=== PATIENT | female | born 1970 | race African-American/Black ===

== ENCOUNTER 2016-11-22 20:36 | Emergency (ER) | payer OTHER ==
[~2016-11-22] VITALS: Ht 162.6 cm; Wt 63.5 kg
[~2016-11-22 20:36] MED LIST: CARAFATE 1 GM TA1 G1 PO; PEPCID20 MG PO
[2016-11-22] MEDS ORDERED: BENTYL 10 MG CA10 M1 PO (20:43)
[2016-11-22] MEDS ORDERED: NEXIUM40 MG PO (21:16)
[2016-11-22 21:44] LABS: HEMOGLOBIN 18.2 gm/dL (12.0-15.0); MCH 31.3 pg (26.0-34.0); MCHC 35.7 g/dL (28.0-37.0); MCV 87.7 fL (80.0-100.0); PLATELET COUNT 402 thou/uL (150-400); RBC 5.81 mil/uL (4.20-5.00); RDW 12.8 % (10.5-14.5); WBC 13.1 thou/uL (4.0-11.0)
[2016-11-22 21:48] LABS: CALCIUM 10.5 mg/dL (8.5-10.1); CREATININE 1.7 mg/dL (0.6-1.0); MANUAL DIFF YES; POTASSIUM 4.2 mmol/L (3.5-5.1)
[2016-11-22 21:52] LABS: ALBUMIN 4.6 g/dL (3.4-5.0); TOTAL BILIRUBIN 0.6 mg/dL (<0.1-1.0); TOTAL PROTEIN 9.1 g/dL (6.4-8.2)
[2016-11-22 22:07] LABS: ABSOLUTE NEUTROPHILS 9.7 thou/uL (1.4-8.2); ATYPICAL LYMPHS 3 %; TOTAL CELL COUNT 100
[2016-11-22 22:08] LABS: LARGE PLATELETS OCCASIONAL
[2016-11-23] MEDS ORDERED: ONDANSETRON HCL4 M2 PO (00:01)
[2016-11-23 00:16] VITALS: BP 108/70
== END 2016-11-23 01:08 | disposition home or self-care (01) ==
LOC: ER 20:36
PROVIDERS: Physician Assistant
DX: K29.70 Gastritis, unspecified, without bleeding (principal); N17.9 Acute kidney failure, unspecified; E86.0 Dehydration; R25.2 Cramp and spasm; F17.210 Nicotine dependence, cigarettes, uncomplicated

== ENCOUNTER 2017-08-23 14:24 | Emergency (ER) | payer OTHER ==
[~2017-08-23] VITALS: Ht 165.1 cm; Wt 66.7 kg
[~2017-08-23 14:24] MED LIST changes: +BENTYL 10 MG CA10 M1 PO; +NEXIUM40 MG PO; +ONDANSETRON HCL4 M2 PO
[2017-08-23] MEDS ORDERED: OMEPRAZOLE40 MG PO (14:47)
[2017-08-23 14:58] LABS: ABSOLUTE NEUTROPHILS 5.6 thou/uL (1.4-8.2); BASOPHILS 0.7 % (0.0-2.0); EOSINOPHILS 0.8 % (0.0-3.0); HEMATOCRIT 53.6 % (37.0-47.0); LYMPHOCYTES 28.3 % (24.0-44.0); MCH 32.2 pg (26.0-34.0); MCHC 35.5 g/dL (28.0-37.0); MCV 90.7 fL (80.0-100.0); MONOCYTES 10.3 % (1.0-8.0); PLATELET COUNT 419 thou/uL (150-400); POLYS 59.9 % (36.0-66.0); RBC 5.91 mil/uL (4.20-5.00); RDW 12.5 % (10.5-14.5); WBC 9.4 thou/uL (4.0-11.0)
[2017-08-23 15:04] LABS: CREATININE 1.1 mg/dL (0.6-1.0); POTASSIUM 3.5 mmol/L (3.5-5.1)
[2017-08-23 15:10] LABS: ALBUMIN 4.2 g/dL (3.4-5.0); TOTAL BILIRUBIN 0.8 mg/dL (<0.1-1.0); TOTAL PROTEIN 8.9 g/dL (6.4-8.2)
[2017-08-23] MEDS ORDERED: ONDANSETRON HCL4 M2 PO (15:36)
== END 2017-08-23 16:49 | disposition home or self-care (01) ==
LOC: ER 14:24
PROVIDERS: Emergency Medicine
DX: R11.2 Nausea with vomiting, unspecified (principal); F17.210 Nicotine dependence, cigarettes, uncomplicated

== ENCOUNTER → 2017-12-20 | Outpatient (CLI) | payer OTHER ==
[~2017-12-20] MED LIST changes: +OMEPRAZOLE40 MG PO
== END ==
LOC: RAD 12-02 00:55
DX: N60.01 Solitary cyst of right breast (principal); N60.02 Solitary cyst of left breast; R92.8 Other abnormal and inconclusive findings on diagnostic imaging of breast

== ENCOUNTER 2018-06-21 09:34 | Emergency (ER) | payer OTHER ==
[~2018-06-21] VITALS: Ht 165.1 cm; Wt 70.3 kg
[2018-06-21 09:34] VITALS: BP 109/69
[2018-06-21] MEDS ORDERED: MOBIC7.5 MG PO (10:52)
[2018-06-21] MEDS ORDERED: NORFLEX100 MG PO (10:52)
== END 2018-06-21 11:20 | disposition home or self-care (01) ==
LOC: ER 09:34
DX: S39.012A Strain of muscle, fascia and tendon of lower back, initial encounter (principal); S29.012A Strain of muscle and tendon of back wall of thorax, initial encounter; Z87.891 Personal history of nicotine dependence; W10.9XXA Fall (on) (from) unspecified stairs and steps, initial encounter; Y93.89 Activity, other specified; Y92.89 Other specified places as the place of occurrence of the external cause; Y99.8 Other external cause status

== ENCOUNTER 2018-06-25 10:44 | Emergency (ER) | payer OTHER ==
[~2018-06-25 10:44] MED LIST changes: +MOBIC7.5 MG PO; +NORFLEX100 MG PO
--- NOTE | 2018-06-25 11:32 | EKG ---
[address] [place] [address] ELECTROCARDIOGRAM REPORT Name: ALVA MERINO Room #: [facility]#: [id number] Admission: Attend Phys: Discharge: Date of : 72 Report #: [id number] THIS REPORT FOR: //name// [facility] ED Test Date: 2018-06-25 Test Time: 11:19:32 Pat Name: ALVA MERINO Department: Room: Gender: F [employer]: : 1970 Requested By: Melani Dumas Order Number: [id number] MD: Jenaro Arguelles Measurements Intervals [place] Rate: 74 P: 119 MS: 114 QRS: 69 QRSD: 85 T: 47 QT: 394 QTc: 438 Interpretive Statements Sinus rhythm Borderline short MS interval Nonspecific T-wave abnormality No previous ECG available for comparison Electronically Signed On 06-25-2018 11:32:14 JEWEL INSPECTOR by Jenaor Arguelles [email or web address] <ELECTRONICALLY SIGNED> By: Jenaro Arguelles MD 06/25/18 1132 1119 1119 Jenaro Arguelles MD /EPI
[2018-06-25 11:37] LABS: HEMATOCRIT 47.7 % (37.0-47.0); HEMOGLOBIN 16.8 gm/dL (12.0-15.0); MCHC 35.3 g/dL (28.0-37.0); MCV 90.7 fL (80.0-100.0); PLATELET COUNT 366 thou/uL (150-400); RBC 5.26 mil/uL (4.20-5.00); RDW 12.9 % (10.5-14.5); WBC 10.8 thou/uL (4.0-11.0)
[2018-06-25 11:45] LABS: ANION GAP 9 mmol/L (7-16); BUN 10 mg/dL (7-18); CALCIUM 9.3 mg/dL (8.5-10.1); CHLORIDE 98 mmol/L (98-107); CO2 27 mmol/L (21-32); CREATININE 0.9 mg/dL (0.6-1.0); GLUCOSE 98 mg/dL (74-106); SODIUM 134 mmol/L (136-145)
[2018-06-25 11:54] LABS: ALBUMIN 3.6 g/dL (3.4-5.0); LIPASE 54 U/L (73-393); SGOT 12 U/L (15-37); SGPT 15 U/L (30-65); TOTAL BILIRUBIN 1.5 mg/dL (<0.1-1.0); TOTAL PROTEIN 7.6 g/dL (6.4-8.2); TROPONIN-I <0.06 ng/mL (<0.06)
[2018-06-25 12:42] LABS: URINE BLOOD NEGATIVE (Negative); URINE CLARITY CLEAR; URINE COLOR AMBER; URINE GLUCOSE-RANDOM* NEGATIVE (Negative); URINE KETONES 2+ (Negative); URINE LEUKOCYTES-REFLEX NEGATIVE (Negative); URINE NITRITE-REFLEX NEGATIVE (Negative); URINE PROTEIN (DIPSTICK) TRACE (Negative); URINE UROBILINOGEN > 8.0 E.U./dl (0.2-1.0)
[2018-06-25 12:47] LABS: ICTOTEST (BILI CONFIRMATORY) Negative (Negative); URINE BILIRUBIN NEGATIVE (Negative)
[2018-06-25 12:49] LABS: CASTS None Seen /LPF (None Seen); CRYSTALS None Seen /LPF (None Seen); MUCUS 4-6 Moderate strn/LPF (None Seen); SQUAMOUS >10 Many /LPF (0-3)
[2018-06-25 12:50] LABS: BACTERIA-REFLEX None Seen /HPF (None Seen); URINE RBC 0-2 Rare /HPF (0-2); URINE WBC-REFLEX None Seen /HPF (0-5)
[2018-06-25] MEDS ORDERED: PHENERGAN 25 MG25 M1 PO (12:55)
[2018-06-25] MEDS ORDERED: PEPCID20 MG PO (12:55)
[2018-06-25 13:03] LABS: ABSOLUTE NEUTROPHILS 6.5 thou/uL (1.4-8.2); ATYPICAL LYMPHS 1 %
[2018-06-25 13:27] VITALS: BP 124/78
== END 2018-06-25 14:01 | disposition home or self-care (01) ==
LOC: ER 10:44
PROVIDERS: Physician Assistant
DX: E87.6 Hypokalemia (principal); R11.2 Nausea with vomiting, unspecified; R10.13 Epigastric pain; K58.9 Irritable bowel syndrome, unspecified; G89.29 Other chronic pain; Z87.891 Personal history of nicotine dependence

== ENCOUNTER → 2018-08-18 | Outpatient (CLI) | payer OTHER ==
[~2018-08-18] MED LIST changes: +PHENERGAN 25 MG25 M1 PO
== END ==
LOC: RAD 01:27
DX: N60.01 Solitary cyst of right breast (principal); N60.02 Solitary cyst of left breast; R92.8 Other abnormal and inconclusive findings on diagnostic imaging of breast

== ENCOUNTER 2018-09-09 07:46 | Emergency (ER) | payer OTHER ==
[~2018-09-09] VITALS: Ht 165.1 cm; Wt 70.3 kg
[2018-09-09 08:18] LABS: HEMATOCRIT 51.3 % (37.0-47.0); HEMOGLOBIN 17.8 gm/dL (12.0-15.0); MCHC 34.8 g/dL (28.0-37.0); MCV 92.1 fL (80.0-100.0); RBC 5.57 mil/uL (4.20-5.00); RDW 13.3 % (10.5-14.5); WBC 9.9 thou/uL (4.0-11.0)
[2018-09-09 08:19] LABS: CALCIUM 10.3 mg/dL (8.5-10.1); CREATININE 1.1 mg/dL (0.6-1.0); POTASSIUM 3.8 mmol/L (3.5-5.1)
[2018-09-09 08:25] LABS: ALBUMIN 4.7 g/dL (3.4-5.0); TOTAL BILIRUBIN 1.5 mg/dL (<0.1-1.0); TOTAL PROTEIN 9.1 g/dL (6.4-8.2)
[2018-09-09] MEDS ORDERED: ZOFRAN ODT4 MG DISSOLVE (08:27)
[2018-09-09 08:45] LABS: ABSOLUTE NEUTROPHILS 5.9 thou/uL (1.4-8.2); ANISOCYTOSIS 1+; ATYPICAL LYMPHS 1 %
[2018-09-09 08:46] LABS: LARGE PLATELETS OCCASIONAL
[2018-09-09 08:47] LABS: PLATELET COUNT 424 thou/uL (150-400)
[2018-09-09 09:16] VITALS: BP 120/82
== END 2018-09-09 09:37 | disposition home or self-care (01) ==
LOC: ER 07:46
PROVIDERS: Emergency Medicine
DX: K58.9 Irritable bowel syndrome, unspecified (principal); K27.9 Peptic ulcer, site unspecified, unspecified as acute or chronic, without hemorrhage or perforation; R11.2 Nausea with vomiting, unspecified; G89.29 Other chronic pain; R10.9 Unspecified abdominal pain; Z87.891 Personal history of nicotine dependence